=== PATIENT | female | born 1980 | race African-American/Black ===

== ENCOUNTER → 2017-09-08 | Day surgery (SDC) | payer BC ==
[~2017-09-08] MED LIST: ACETAMINOPHEN 1000 MG/100 ML 100 ML IV ONE; ALLOPURINOL300 MG PO; AMLODIPINE BESY10 MG PO; DEXAMETHASONE SOD PHOS INJ 4 MG/ML VIAL ONE; FENTANYL CITRATE/PF 100MCG/2 ML INJ ONE; HYDROCHLOROTH12.5 MG PO; IOPAMIDOL 300MG/ML 50ML INFUS..BTL IV ONE; LEVOFLOXACIN 500MG/D5W 100ML 100 ML IV ONE; LIDOCAINE HCL 2% LOCAL INJ 5 ML SDV VIAL INJ ONE; MIDAZOLAM HCL 2 MG/2 ML VIAL ONE; OMEPRAZOLE40 MG PO; ONDANSETRON HCL INJ 2 MG/ML VIAL ONE; PROPOFOL IV EMULSION 10 MG/ML 20 ML VIAL ONE; SEVOFLURANE INHAL SOLN 250 ML PEN BTL ONE; [UNRECOGNIZED DRUG - OTHER]
--- NOTE | 2017-09-08 13:16 | Operative Report ---
DATE OF PROCEDURE: September 08, 2017 PREOPERATIVE DIAGNOSIS: Left midureteral calculus, 6 x 5 mm, opposite L3-L4. POSTOPERATIVE DIAGNOSIS: Calculus migrated upwards to just below the left ureteropelvic junction and measured 8 x 8 mm on retrograde. OPERATIONS PERFORMED 1. Cystourethroscopy and left retrograde pyelogram. 2. Left upper third ureteral calculus extracorporeal shock wave lithotripsy. ANESTHETIC: General. INDICATIONS: Ms. Ovalles is a 37-year-old female who presented with a chief complaint of acute onset of severe pain on the left side. This lady is very well known to me with a history of recurrent kidney stones. KUB showed soft calculus opposite L3-L4 and measured about 6 x 5 mm. PROCEDURE IN DETAIL: This patient was placed on the table in the supine position and attempt at localizing the stone could not be done and for this reason she was placed on the table in the lithotomy position. This patient was then prepped and draped in a sterile manner. A #23-Burkin[place] cystoscope was used and cystourethroscopy was performed and the stone has migrated upwards to just below the ureteropelvic junction and measured about 8 x 8 mm. The bladder was drained. Cystoscope removed. The patient was then placed on the table in the supine position. The calculus was brought into position between F1 and F2 of the fluoroscopic monitor. The ESWL was then started, starting at 2 kV and slowly and gradually increased to 7 kV. Observation of the stone pulverization was done at 200 to 250 shocks. At 2,500 shocks, it was felt that the stone has completely pulverized and powdered. The lithotripsy machine was then shut down. The patient was taken to the [facility] to the recovery room in satisfactory condition. Plans for this lady is to be placed on Cipro 500 mg 1 twice a day for 1 week. Ultracet tablet 1 every 4-6 hours given and was given 30. She is to return to the office in 4 weeks. She was instructed on straining her urine. Job#: [id number]
== END | disposition home or self-care (01) ==
LOC: OR 09:46
PROVIDERS: ATTEND Specialist
DX: N20.1 Calculus of ureter (principal); I10 Essential (primary) hypertension
CPT/HCPCS: 50590; 81025; C1758; J1100; J1956; J2001; J2250; J2405; Q9967